=== PATIENT | female | born 1930 | race Caucasian/White ===

== ENCOUNTER 2019-02-05 05:03 | Emergency (ER) | payer MEDICARE, OTHER ==
[~2019-02-05] VITALS: Ht 165.1 cm; Wt 73.5 kg
[~2019-02-05 05:03] MED LIST: AMLODIPINE-ATO1 EAC5 PO; BENICAR HCT 401 EAC1 PO; CADUET 10 MG-11 EACH PO; CALCIUM600 MG PO; CENTRUM SILVER1 EAC3 PO; EVISTA60 MG PO; FISH OIL 1,2001 EACH PO; SULFAMETHOXAZO1 EAC1 PO; SYNTHROID88 MCG PO
--- OUTSIDE RECORDS SUMMARY | 2019-02-05 05:06 | XMS REPORT ---
[facility] Address Unknown Phone Unavailable Care Team Providers Care Manager Stars Name Role Phone Unavailable Unavailable Payers Payer Name Policy Type Policy Number Effective Date Expiration Date Problems This patient has no known problems. Allergies, Adverse Reactions, Alerts Allergy Name Allergy Type Status Severity Reaction(s) Onset Date Inactive Date Treating Clinician Comments sulfamethoxazole DA Active U 2017-05-21 00:00:00 trimethoprim DA Active U 2017-05-21 00:00:00 Medications This patient has no known medications. Results Test Description Test Time Test Comments Text Results Atomic Results Result Comments BREAST ULTRASOUND BILATERAL 2018-10-06 17:27:50 - DIAG MAMM BILATERAL VASILE CAD DIGITALBILATERAL DIGITAL DIAGNOSTIC MAMMOGRAM 3D/2D WITH CAD: 10/06/2018CLINICAL: Dense breasts. Digital breast tomosynthesis was performed in addition to routine CC and MLO views. Current mammographic images were evaluated by either a Ven[employer]ech M-Vu or a [employer] ImageChecker CAD (computer aided detection system). Comparison is made to exams dated 10/05/2017 mammogram, mammogram, and 09/03/2015 mammogram - [facility]. The tissue of both breasts is extremely dense, which lowers the sensitivity of mammography. No suspicious mass, architectural distortion, malignant type calcification, or lymph node abnormality detected. INCOMPLETE ASSESSMENT: ADDITIONAL IMAGING EVALUATION RECOMMENDEDBilateral ultrasound pending for additional evaluation. Resume annual screening mammography in one year. - BREAST ULTRASOUND BILATERALULTRASOUND OF BOTH BREASTS AND BOTH AXILLA: 10/06/2018Comparison is made to exams dated 10/05/2017 mammogram, 09/08/2016 mamm ogram, and 09/03/2015 mammogram - [facility]. Real-time ultrasound of both breasts and both axilla and clinical breast exam was performed. No abnormalities were seen sonographically in either breast or either axilla. Clinical breast exam was unremarkable.IMPRESSION: NEGATIVE There is no sonographic evidence of malignancy. Patient has been informed that she has areas of dense breast tissue that could make it difficult to find a small cancer. A screening mammogram and supplemental ultrasound for dense breast tissue is recommended in 1 year.Jodi Jiang M.D. dm/:10/06/2018 17: 27:50 copy to: Moises Del Angel MD, ph: [phone], fax: [phone] Technologist: Emilia Sun , [facility]: BIRADS 1-2 Combo FU Letter Mammogram BI-RADS: 0 Indeterminate Ultrasound BI- RADS: 1 Negative DIAG MAMM BILATERAL VASILE CAD DIGITAL 2018-10-06 17:27:50 - DIAG MAMM BILATERAL VASILE CAD DIGITALBILATERAL DIGITAL DIAGNOSTIC MAMMOGRAM 3D/2D WITH CAD: 10/06/2018CLINICAL: Dense breasts. Digital breast tomosynthesis was performed in addition to routine CC and MLO views. Current mammographic images were evaluated by either a [employer]ech M-Vu or a [employer] ImageChecker CAD (computer aided detection system). Comparison is made to exams dated 10/05/2017 mammogram, mammogram, and 09/03/2015 mammogram - [facility]. The tissue of both breasts is extremely dense, which lowers the sensitivity of mammography. No suspicious mass, architectural distortion, malignant type calcification, or lymph node abnormality detected. INCOMPLETE ASSESSMENT: ADDITIONAL IMAGING EVALUATION RECOMMENDEDBilateral ultrasound pending for additional evaluation. Resume annual screening mammography in one year. - BREAST ULTRASOUND BILATERALULTRASOUND OF BOTH BREASTS AND BOTH AXILLA: 10/06/2018Comparison is made to exams dated 10/05/2017 mammogram, 09/08/2016 mamm ogram, and [facility]. Real-time ultrasound of both breasts and both axilla and clinical breast exam was performed. No abnormalities were seen sonographically in either breast or either axilla. Clinical breast exam was unremarkable.IMPRESSION: NEGATIVE There is no sonographic evidence of malignancy. Patient has been informed that she has areas of dense breast tissue that could make it difficult to find a small cancer. A screening mammogram and supplemental ultrasound for dense breast tissue is recommended in 1 year.Jodi Jiang M.D. dm/:10/06/2018 17: 27:50 copy to: Moises Del Angel MD, ph: [phone], fax: [phone] Technologist: Emilia OWENS, [facility] sent: BIRADS 1-2 Combo FU Letter Mammogram BI-RADS: 0 Indeterminate Ultrasound BI- RADS: 1 Negative
--- NOTE | 2019-02-05 05:56 | Diagnostic Imaging Report ---
Hip complete Indication: ^S/P FALL ^Y Technique: AP and frogleg views of right hip obtained. Comparison: None Findings: The hip remains properly located. The cortex appears intact throughout. Trochanters appear intact. Adjacent pubic rami appear intact. Lower lumbar spine demonstrates mild endplate degenerative changes. Visualized portion of the left hip is intact and normally positioned. IMPRESSION: No acute traumatic pathology. Signed by: Dr. Margarita Umanzor MD on 02/05/2019 5:53 AM
--- NOTE | 2019-02-05 05:59 | Diagnostic Imaging Report ---
Shoulder CPT code: 55348 Indication: Fall. Technique: Internal and external images of the right shoulder obtained without comparison. Findings: There is no current dislocation. No evidence of fracture involving the humeral head. Visualized proximal shaft is intact. The clavicle is intact. Trace degenerative spurring involves distal clavicle and acromion. These appear properly aligned however. No fracture evident involving the visualized portion of the scapula. Portions are overlapped by the ribs on all images however. IMPRESSION: No evidence of acute fracture or dislocation involving the shoulder. Signed by: Dr. Margarita Umanzor MD on 02/05/2019 5:55 AM
== END 2019-02-05 07:10 | disposition home or self-care (01) ==
LOC: ER 05:03
DX: S40.011A Contusion of right shoulder, initial encounter (principal); S70.01XA Contusion of right hip, initial encounter; W01.0XXA Fall on same level from slipping, tripping and stumbling without subsequent striking against object, initial encounter; Y93.01 Activity, walking, marching and hiking; Y92.59 Other trade areas as the place of occurrence of the external cause; E78.5 Hyperlipidemia, unspecified
CPT/HCPCS: 99283

== ENCOUNTER → 2019-11-20 | Outpatient (RCR) | payer MEDICARE, OTHER | LOC: PT 10-26 09:00 | PROVIDERS: ATTEND Internal Medicine | DX: H81.10 Benign paroxysmal vertigo, unspecified ear (principal); M62.81 Muscle weakness (generalized); R26.81 Unsteadiness on feet ==

== ENCOUNTER 2019-12-04 08:58 | Outpatient (RCR) | payer MEDICARE, OTHER | END 2019-12-20 | LOC: PT 08:58 | PROVIDERS: ATTEND Internal Medicine | DX: H81.10 Benign paroxysmal vertigo, unspecified ear (principal); M62.81 Muscle weakness (generalized); R26.81 Unsteadiness on feet | CPT/HCPCS: 97139 ==